=== PATIENT | male | born 1980 | race Caucasian/White ===

== ENCOUNTER → 2016-11-10 | Outpatient (CLI) | payer SELFPAY | LOC: COL.VAS 12:27 | DX: I36.1 Nonrheumatic tricuspid (valve) insufficiency (principal); R94.31 Abnormal electrocardiogram [ECG] [EKG] ==

== ENCOUNTER → 2019-08-09 | Outpatient (CLI) | payer SELFPAY | LOC: COL.PUL 07:57 | DX: R05 Cough (principal); R06.02 Shortness of breath ==

== ENCOUNTER → 2019-09-12 | Outpatient (CLI) | payer SELFPAY | LOC: COL.VAS 07:47 | DX: I51.7 Cardiomegaly (principal) ==

== ENCOUNTER → 2019-11-16 | Outpatient (CLI) | payer SELFPAY ==
[~2019-11-16] MED LIST: ASPIRIN 81M81 MG/TA2 PO; COZAAR 25MG25 MG/TAB PO; NITRO-DUR0.1 MG/PAT TD; PREVACID 30MG30 M1 PO; VALIUM 5MG T5 MG/TAB PO; ZYBAN150 M1
== END ==
LOC: COL.RAD 14:18
DX: Q23.1 Congenital insufficiency of aortic valve (principal); R07.9 Chest pain, unspecified
CPT/HCPCS: Q9967